=== PATIENT | male | born 1960 | race Hispanic/Latino ===

== ENCOUNTER → 2016-08-27 | Outpatient (CLI) | payer OTHER ==
[2016-08-27 10:14] LABS: BASOPHILS # (AUTO) 0.01 10*3/UL; BASOPHILS % (AUTO) 0.2 % (0-1); EOSINOPHILS # (AUTO) 0.05 10*3/UL; EOSINOPHILS % (AUTO) 0.9 % (0-8); HEMATOCRIT 40.6 % (42.0-52.0); HEMOGLOBIN 13.2 g/dL (14.0-18.0); LYMPHOCYTES # (AUTO) 1.35 10*3/uL; MEAN CORPUSCULAR HEMOGLOBIN 27.4 PG (27-31); MEAN CORPUSCULAR HGB CONC 32.5 g/dL (33-37); MEAN PLATELET VOLUME 8.8 FL (7.4-12.2); MONOCYTES # (AUTO) 0.49 10*3/UL (0.3-0.8); MONOCYTES % (AUTO) 8.5 % (5-15); NEUTROPHILS # (AUTO) 3.86 10*3/UL; NEUTROPHILS % (AUTO) 66.7 % (50-80); RED BLOOD COUNT 4.81 10^6/uL (4.70-6.10)
[2016-08-27 10:20] LABS: PLATELET MORPHOLOGY COMMENT NORMAL MORPHOLOGY (NORM); RBC MORPHOLOGY COMMENT NORMAL MORPHOLOGY (NORM); WBC MORPHOLOGY COMMENT NORMAL MORPHOLOGY (NORM)
[2016-08-27 10:30] LABS: BLOOD UREA NITROGEN 9 mg/dL (7-22); BUN/CREATININE RATIO 12.85 (6-20); CALCIUM 9.9 mg/dL (8.7-10.7); CHOL/HDL RATIO 3.44 RATIO (0-4.0); EST GLOMERULAR FILTRATION > 60 (>60 ml/min/1.73m(2)); HDL CHOLESTEROL 47 mg/dL (40-150); SERUM ALBUMIN 4.7 g/dL (3.5-4.8); SERUM CHOLESTEROL 162 mg/dL (120-200); URIC ACID 8.3 mg/dl (3.8-8.5)
--- NOTE | 2016-08-27 11:20 | EKG ---
[address] [address] Measurements Intervals [place] Rate: 135 P: OR: 0 QRS: 190 QRSD: 113 T: 37 QT: 276 QTc: 355 Interpretive Statements ATRIAL FIBRILLATION WITH RAPID VENTRICULAR RESPONSE MARKED RIGHT AXIS DEVIATION RIGHT BUNDLE BRANCH BLOCK ] POSSIBLE ANTERIOR MYOCARDIAL INFARCTION, OF INDETERMINATE AGE Compared to ECG 09/11/2013 14:18:15 Right-axis deviation now present Sinus rhythm no longer present Indeterminate axis no longer present Left posterior fascicular block no longer present Myocardial infarct finding still present Electronically Signed On 08-27-16 18:13:16 MDT by Cresencio Alonso [email or web address]
== END ==
LOC: EKG 09:34 → MOB RAD 09:34
PROVIDERS: ATTEND Family Medicine
DX: Z00.00 Encounter for general adult medical examination without abnormal findings (principal); E78.5 Hyperlipidemia, unspecified; M10.9 Gout, unspecified; E05.90 Thyrotoxicosis, unspecified without thyrotoxic crisis or storm; I48.91 Unspecified atrial fibrillation; I45.19 Other right bundle-branch block; F17.210 Nicotine dependence, cigarettes, uncomplicated; Z12.5 Encounter for screening for malignant neoplasm of prostate
CPT/HCPCS: 36415; 80053; 80061; 82306; 84439; 84443; 84550; 85025; 93005; 93010; G0103

== ENCOUNTER → 2016-11-28 | Outpatient (CLI) | payer OTHER ==
[2016-11-28 15:04] LABS: BASOPHILS # (AUTO) 0.05 10*3/UL; BASOPHILS % (AUTO) 0.5 % (0-1); EOSINOPHILS # (AUTO) 0.03 10*3/UL; EOSINOPHILS % (AUTO) 0.3 % (0-8); HEMATOCRIT 38.8 % (42.0-52.0); HEMOGLOBIN 12.9 g/dL (14.0-18.0); LYMPHOCYTES # (AUTO) 1.83 10*3/uL; MEAN CORPUSCULAR HEMOGLOBIN 25.4 PG (27-31); MEAN CORPUSCULAR HGB CONC 33.2 g/dL (33-37); MEAN CORPUSCULAR VOLUME 76.5 FL (80-90); MEAN PLATELET VOLUME 8.1 FL (7.4-12.2); MONOCYTES # (AUTO) 0.94 10*3/UL (0.3-0.8); MONOCYTES % (AUTO) 8.5 % (5-15); NEUTROPHILS # (AUTO) 8.16 10*3/UL; NEUTROPHILS % (AUTO) 73.9 % (50-80); RED BLOOD COUNT 5.07 10^6/uL (4.70-6.10)
[2016-11-28 15:09] LABS: PLATELET MORPHOLOGY COMMENT NORMAL MORPHOLOGY (NORM); RBC MORPHOLOGY COMMENT NORMAL MORPHOLOGY (NORM); WBC MORPHOLOGY COMMENT NORMAL MORPHOLOGY (NORM)
[2016-11-28 16:20] LABS: FREE T4 (FREE THYROXINE) 1.64 ng/dL (0.93-1.71)
== END ==
LOC: CT 14:08
PROVIDERS: ATTEND Family Medicine
DX: I48.91 Unspecified atrial fibrillation (principal); I10 Essential (primary) hypertension; E03.9 Hypothyroidism, unspecified; E55.9 Vitamin D deficiency, unspecified; R30.0 Dysuria; F17.200 Nicotine dependence, unspecified, uncomplicated
CPT/HCPCS: 36415; 82306; 84439; 84443; 85025

== ENCOUNTER → 2016-12-07 | Outpatient (CLI) | payer OTHER ==
[2016-12-07 09:40] LABS: BILIRUBIN,URINE NEGATIVE (NEG); CLARITY,URINE CLEAR (CLEAR); COLOR,URINE YELLOW; GLUCOSE, URINE (UA) NEGATIVE (NEG); NITRATE,URINE NEGATIVE (NEG); OCCULT BLOOD,URINE NEGATIVE (NEG); PROTEIN,URINE NEGATIVE (NEG); UROBILINOGEN,URINE 0.2 mg/dL (0.2)
[2016-12-07 09:46] LABS: SQUAMOUS EPITHELIAL CELL,UR RARE; URINE SAMPLE TYPE CLEAN CATCH URINE
== END ==
LOC: LAB 08:56
PROVIDERS: ATTEND Family Medicine
DX: R30.0 Dysuria (principal); I10 Essential (primary) hypertension; I48.91 Unspecified atrial fibrillation; F17.200 Nicotine dependence, unspecified, uncomplicated
CPT/HCPCS: 81001; 93306

== ENCOUNTER 2016-12-10 08:56 | Day surgery (SDC) | payer OTHER ==
[~2016-12-10 08:56] MED LIST: LIDOCAINE W/ SODIUM BICARB 0.5 ML SYR ONE; Lactated Ringers 1,000 ML PRIMARY IV ONE
[2016-12-10] MEDS ORDERED: IPRATROPIUM/ALBUTEROL SULFATE 3 ML NEB NEB ONE ×2 (10:19→10:22)
[2016-12-10] MEDS ORDERED: METOPROLOL TARTRATE 5 MG/5 ML VIAL IVP ONE (10:20)
[2016-12-10] MEDS ORDERED: METOPROLOL TARTRATE 5 MG/5 ML VIAL ONE (10:22)
[2016-12-10] MEDS ORDERED: Lactated Ringers 1,000 ML PRIMARY IV ONE (10:49)
[2016-12-10] MEDS ORDERED: MIDAZOLAM 5 MG/1 ML ONE (10:59)
[2016-12-10] MEDS ORDERED: fentaNYL Inj 100 MCG/2 ML VIAL ONE (10:59)
[2016-12-10] MEDS ORDERED: Lidocaine Inj 1% 20 ML ONE (11:00)
[2016-12-10] MEDS ORDERED: LIDOCAINE HCL/PF 2% (20 MG/ML) - 5 ML SYRINGE ONE (11:04)
[2016-12-10] MEDS ORDERED: ESMOLOL HCL 100 MG/10 ML VIAL ONE (11:14)
--- NOTE | 2016-12-10 11:37 | GEN.OPNOTE ---
EGD / Colonoscopy Report Surgery Date: 12/10/16 Preoperative Diagnosis: Black tarry stools. Pigmented skin lesion of the nose Postoperative Diagnosis: Duodenal ulcer. There is esophagus. Submucosal mass in the prepyloric area. Pigmented skin lesion Procedure: Colonoscopy. EGD with biopsies. Punch biopsy of the nose Surgeon: Edward Lombardo MD Anesthesia Provider: Jean Pierre Garcia CRNA Anesthesia Type: MAC Indications: Patient's been asked some black stools. He needs an EGD and colonoscopy see the source. He also has a pigmented skin lesion since he is off his anticoagulations for the procedure we'll do the biopsy EGD Findings: Esophagus: Scope was advanced into the posterior pharynx under direct visualization. His then advanced into the esophagus under visualization. 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 Biopsies were taken. This is a short segment may be only 5 mm in greatest length GE Junction : GE junction proximal be 41-42 cm Fundus : Go pressure Flexon itself revealing normal fundus Body : Patient has some chronic inflammatory changes the body of the stomach Prepyloric : Prepyloric area had a submucosal mass that was soft and freely mobile. Mucosal biopsies taken. A TANK CHARGER within the pylorus had what appeared to be acute inflammatory changes biopsies taken Small Intestine : First second portion of duodenum were within normal limits A lubricated flexible upper endoscope was inserted and passed through the esophagus and stomach into the duodenum. Colonoscopy Findings: Prep : Excellent Cecum : Scope was advanced over the cecum. Ileocecal valve identified is able to cannulate the terminal ileum. Terminal ileum appeared to be normal. Cecum was within normal limits Ascending : Ascending colon free from disease Transverse : Transverse colon free from disease Sigmoid : Descending and sigmoid colon had no active pathology Rectum : Internal hemorrhoids otherwise no active pathology Digital Rectal Exam : External hemorrhoidal skin tags A lubricated flexible colonoscope was inserted and passed to the blind end of the cecum. Additional Details: Before during the endoscopy procedure the patient's nose is prep with Hibiclens. Infiltrative 1% Xylocaine without epinephrine 1 mL was used. A 2 mm punch biopsy was done taken. Hemostasis obtained with pressure. Dermabond was placed for dressing
[2016-12-10 13:19] VITALS: RESP 14
[2016-12-10 13:21] VITALS: TEMP 97.4
== END 2016-12-10 12:25 | disposition home or self-care (01) ==
LOC: SDSC 08:56
PROVIDERS: ATTEND Surgery
DX: K92.1 Melena (principal); L81.8 Other specified disorders of pigmentation; J34.89 Other specified disorders of nose and nasal sinuses
CPT/HCPCS: 11100; 43239; 45378; 87339; 94640; J2704; J3010; J7620; J2001; J2250; J7120

== ENCOUNTER 2017-06-15 00:37 | Inpatient (IN) ==
[2017-06-15] MEDS ORDERED: NORMAL SALINE 10 ML SYRINGE FLUSH IVP PRN ×6 (01:12→13:21)
[2017-06-15] MEDS ORDERED: Lactated Ringers 1,000 ML PRIMARY IV ONE (01:18)
[2017-06-15] MEDS ORDERED: Pantoprazole Inj 40 MG in Normal Saline Flush 10 ML IVP ONE (01:19)
[2017-06-15] MEDS ORDERED: Sodium Chloride 0.9% 500 ML PRIMARY IV ONE ×6 (01:21→13:21)
[2017-06-15 01:38] LABS: SERUM ALBUMIN 4.4 g/dL (3.5-4.8)
[2017-06-15 01:39] LABS: BASOPHILS # (AUTO) 0.04 10*3/UL; BASOPHILS % (AUTO) 0.3 % (0-1); EOSINOPHILS # (AUTO) 0.06 10*3/UL; EOSINOPHILS % (AUTO) 0.5 % (0-8); Hematocrit [HCT] 25.1 % (42.0-52.0); Hemoglobin [HGB] 7.4 g/dL (14.0-18.0); LYMPHOCYTES # (AUTO) 2.94 10*3/uL; MEAN CORPUSCULAR HGB CONC 29.5 g/dL (33-37); MEAN CORPUSCULAR VOLUME 74.7 FL (80-90); MEAN PLATELET VOLUME 9.1 FL (7.4-12.2); MONOCYTES # (AUTO) 1.02 10*3/UL (0.3-0.8); MONOCYTES % (AUTO) 8.1 % (5-15); NEUTROPHILS # (AUTO) 8.44 10*3/UL; NEUTROPHILS % (AUTO) 67.2 % (50-80); RED BLOOD COUNT 3.36 10^6/uL (4.70-6.10)
[2017-06-15 02:25] LABS: PLATELET MORPHOLOGY COMMENT NORMAL MORPHOLOGY (NORM); RBC MORPHOLOGY COMMENT SEE COMMENTS (NORM); WBC MORPHOLOGY COMMENT NORMAL MORPHOLOGY (NORM)
--- NOTE | 2017-06-15 02:29 | PDOC ---
GI Bleed/Rectal Complaint HPI - General Chief Complaint: GI Bleed / Rectal Pain Stated Complaint: POSSIBLE GI BLEED Date Seen by Provider: 06/15/17 Time Seen by Provider: 00:45 Source: POSITIVE: Patient, Spouse, Old records Exam Limitations: POSITIVE: No limitations Nurse's Notes Reviewed & Considered: Yes EMS Report Reviewed & Considered: Verbal - History of Present Illness Initial Comments: The patient is a 57-year-old male who is brought to the emergency room by ambulance. Patient states that around 2199 he started to feel "sick". He states he was nauseated and had an emesis which she thinks had some blood in it. He also had a "black" bowel movement. He states he felt "dizzy ". No loss of consciousness. Patient was seen in the emergency room on May 31 after having had a syncopal episode. At that time he was noted to have a hemoglobin of 8.4 and a hematocrit of 26.9. Review of records shows that he had no nausea, vomiting, diarrhea or other GI symptoms at that time. Reportedly , at that time, had a syncopal episode while he was at a bar and apparently had been drinking alcohol. Patient states that 6-8 months ago he had some blood in his stool and had an endoscopy and he states that he was diagnosed "with an ulcer". Patient has a history of atrial fibrillation for which he takes [place]hl[place], 5 mg daily. He also takes 81 mg of aspirin daily. He states he occasionally takes indomethacin for gout, but states he's not had any indomethacin for 3-4 months. He denies any chest pain. No neurologic symptoms. Patient states that he drinks about 6 beers per day and occasionally some whiskey. He smokes. Body Location Affected: REPORTS: Abdomen (Gastrointestinal bleeding) Timing: REPORTS: Constant Duration: 1-3 hours (Onset around 2229) Severity: Moderate Quality: REPORTS: Other (No pain anywhere) Context: DENIES: None, Sitting, Standing, Activity, Emotional stress, Coughing, Recent Trauma, Recent Surgery, Sleep, Rest, Lifting, Turning, Bending, Fall, Near Fall, Other Associated Symptoms: REPORTS: Black Stools, Nausea, Vomiting, Coffee Grounds Last BM (Date): 06/14/17 Number of Episodes of Diarrhea (in past 24hrs): 1 Similar Symptoms Previously: Yes (syncopal episode with noted anemia 31 May as above) Recent Care Received: REPORTS: Recently Seen, Treated by MD (As above.) Any Prior Injuries Related to Current Complaint?: No - Patient Home Medications Home Medications: Home Medications Multivit-Min/FA/Lycopene/Lut [Centrum Silver Tablet] 1 ea PO DAILY tab Cholecalciferol (Vitamin D3) [Vitamin D3] 2,000 unit PO DAILY 08/27/16 Metoprolol Tartrate 1 tab PO BID #60 tab 08/27/16 Apixaban [Eliquis] 5 mg PO BID #60 tab 11/28/16 levothyroxine 25 mcg tablet 50 mcg PO DAILY #60 tab 03/18/17 Aspirin [Aspir 81] 81 mg PO DAILY 05/31/17 Irbesartan/Hydrochlorothiazide [AVALIDE] 2 tab PO DAILY tab 06/05/17 indomethacin 50 mg capsule 50 mg PO TID PRN cap 06/05/17 - Patient Allergies Allergies/Adverse Reactions: Allergies 3 Allergy/AdvReac Type Severity Reaction Status Date / Time No Known Allergies Allergy Verified 06/15/17 00:35 Past Medical History - heen HEENT History: Denies History Cardiovascular History: Hypertension, Arrhythmia Additional Cardiovasular History: PT STATES IN AND OUT OF A-FIB Respiratory History: Denies History, Snoring Gastrointestinal History: Other (please comment) Additional Gastrointestinal History: BLACK STOOLS Genitourinary History: Denies History Endocrine History: Hypothyroidism Musculoskeletal History: Gout Prosthesis or Implant: No Additional Musculoskeletal History: BURSITIS Neurological History: Denies History Blood Disorders: Denies History Psychiatric History: Denies History History of Sexually Transmitted Diseases: No Cancer History: Denies History In Past Year Been Physically Harmed or Verbally Threatened: No History of MDRO: No History of Other Communicable Diseases: No Tobacco Use: Current Every Day Smoker Alcohol Use: Heavy Type of alcohol normally used: Beer In the Past 12 Months, Have Used or Abuse Any Substance: None Previous Surgical History: Yes Type / Date of Surgery: RIGHT KNEE SCOPE/ FACE SX AFTER INJURY/UMBILICAL HERNIA/ COLONOSCOPY AND EGD Anesthesia Reactions: No Malignant Hyperthermia: No Significant Family History: Cancer, Diabetes Past Medical History Reviewed: Reviewed - No Changes ROS - Limitations ROS Limitations: No Limitations Constitution: REPORTS: Denies Symptoms Cardiovascular: REPORTS: Denies Cardiac Symptoms Respiratory: REPORTS: Denies Resp Symptoms Neurological: REPORTS: Denies Neuro Symptoms Gastrointestinal: REPORTS: Nausea, Vomitting, Black Stools, Other (Hematemesis) Endocrine: REPORTS: Denies Symptoms Musculoskeletal: REPORTS: Denies MS Symptoms Genitourinary: REPORTS: Denies Symptoms Eyes: REPORTS: Denies Symptoms ENT: REPORTS: Denies Symptoms Skin: REPORTS: Denies Skin Symptoms Lympathic: REPORTS: Denies Lympathic Symptoms Immunologic: POSITIVE: Denies Symptoms Psychiatric: POSITIVE: Denies Psych Symptoms GI Bleed / Rectal Complaint PE - General Appearance General Appearance: POSITIVE: Alert, Cooperative, No Acute Distress, No Evidence of Trauma - HEENT HEENT: POSITIVE: Head Inspection Nml, Eyes Inspection Nml, Ears Inspection Nml, Nose Inspection Nml, Oral/Dental Inspect. Nml, Pharynx Inspect. Nml, PERRL, EOMI - Neck Neck: POSITIVE: Normal Inspection, No Apparent Injury - Respiratory Respiratory: POSITIVE: No Respiratory Distress, Breath Sounds Normal, Chest Non- Tender - Cardiovascular Cardiovascular: POSITIVE: Heart Sounds Normal, Equal Pulses, Strong Pulses, Irregularly Irreg Rhythm, Tachycardia. NEGATIVE: Regular Rate and Rhythm ( Atrial fibrillation at around 100/m), Bradycardia, JVD Present, S3 Gallop, S4 Gallop, Murmur, Occasional Extrasystoles, Frequent Extrasystoles Peripheral Pulses: Radial (R): 2+, Radial (L): 2+ - Abdomen Abdomen: Soft: (All Quadrants), Normal Bowel Sounds: (All Quadrants), Denies Tenderness: (All Quadrants), No Splenomegaly: (All Quadrants), No Hepatomegaly: (All Quadrants), No Guarding: (All Quadrants), No Rebound: (All Quadrants), No Palpable Pulse: (All Quadrants), No Palpabale Mass: (All Quadrants), No Distention: (All Quadrants), No Rigidity: (All Quadrants) - Genital / Rectal Rectal: POSITIVE: Non-Tender, Black Stool, Heme Positive Stool. 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 NEGATIVE: Normal Sinus Rhythm, Normal Rate, Abnormal EKG - Patient's Progress Re-Examine Time:: 02:00 Re-Examine Comment: Protonix IV started; 2 units of packed red blood cells ordered. 2 units fresh frozen plasma ordered. Case discussed with Dr. Hernandez, hospitalist and Dr. Manzo, surgeon. Patient admitted for further evaluation and treatment. - Consult Consult (If Yes, Name of Consulting MD & Time Called): Yes (Dr. Hernandez, hospitalist, Dr. Manzo surgeon, 0210 AM) Consulting MD will see pt:: POSITIVE: [facility] [place] Admit Counseled: POSITIVE: Patient, Family, RE: Lab Results, RE: DX, RE: Need for F/U Patient Care Time - Estimated PCT Patient Care Time (In Minutes): 60 Vital Signs - Recent Vital Signs Vital Signs: Vital Signs (Last 8 hours) Temp Pulse Pulse Resp BP BP Pulse Ox 06/15/17 02:15 97 F 105 H 16 88/53 97 06/15/17 01:59 96.0 F L 115 H 20 100/55 98 06/15/17 00:37 95.4 F L 130 H 93 16 85/48 97 - VS Reviewed Vital Signs Reviewed: Yes Discharge Clinical Impression: Gastrointestinal hemorrhage Discharge Disposition: Admit to Inpatient Condition: Serious Follow Up With: EZRA LANIDS [Primary Care Provider] - Date Decision to Admit to Inpatient: 06/15/17 Time Decision to Admit to Inpatient: 02:00
[2017-06-15] MEDS ORDERED: PANTOPRAZOLE IV 40 MG VIAL ONE (02:42)
[2017-06-15] MEDS ORDERED: ACETAMINOPHEN 325 MG TABLET PO PRN ×2 (03:44→13:21)
[2017-06-15] MEDS ORDERED: DOCUSATE 100 MG CAPSULE PO PRN ×2 (03:44→13:21)
[2017-06-15] MEDS ORDERED: LIDOCAINE W/ SODIUM BICARB 0.5 ML SYR SUBD PRN ×2 (03:44→13:21)
[2017-06-15] MEDS ORDERED: Lactated Ringers 1,000 ML PRIMARY IV SCH ×2 (03:44→10:00)
[2017-06-15] MEDS ORDERED: ONDANSETRON 4 MG/2 ML VIAL IVP PRN ×2 (03:44→13:21)
[2017-06-15 07:35] LABS: BASOPHILS # (AUTO) 0.02 10*3/UL; BASOPHILS % (AUTO) 0.2 % (0-1); EOSINOPHILS # (AUTO) 0.02 10*3/UL; EOSINOPHILS % (AUTO) 0.2 % (0-8); Hematocrit [HCT] 25.8 % (42.0-52.0); Hemoglobin [HGB] 8.3 g/dL (14.0-18.0); LYMPHOCYTES # (AUTO) 2.23 10*3/uL; MEAN CORPUSCULAR HEMOGLOBIN 24.3 PG (27-31); MEAN CORPUSCULAR HGB CONC 32.2 g/dL (33-37); MEAN CORPUSCULAR VOLUME 75.7 FL (80-90); MEAN PLATELET VOLUME 8.6 FL (7.4-12.2); MONOCYTES # (AUTO) 1.15 10*3/UL (0.3-0.8); MONOCYTES % (AUTO) 11.5 % (5-15); NEUTROPHILS # (AUTO) 6.56 10*3/UL; NEUTROPHILS % (AUTO) 65.5 % (50-80); RED BLOOD COUNT 3.41 10^6/uL (4.70-6.10)
[2017-06-15 07:36] LABS: PLATELET MORPHOLOGY COMMENT NORMAL MORPHOLOGY (NORM); RBC MORPHOLOGY COMMENT NORMAL MORPHOLOGY (NORM); WBC MORPHOLOGY COMMENT NORMAL MORPHOLOGY (NORM)
[2017-06-15] MEDS ORDERED: CHOLECALCIFEROL 1000 IU TABLET PO SCH (09:00)
[2017-06-15] MEDS ORDERED: Pantoprazole Inj 40 MG in Normal Saline Flush 10 ML IVP SCH (09:00)
[2017-06-15] MEDS ORDERED: LEVOTHYROXINE 25 MCG TABLET PO SCH (09:00)
--- NOTE | 2017-06-15 09:20 | PDOC ---
HPI - History of Present Illness History of Present Illness: Is a very nice 57-year-old gentleman with past medical history significant for atrial fibrillation on Eliquis. Was seen in the ER sometime ago for syncope at that time he was drinking alcohol at the bar and was inebriated also the patient states that 6-8 months ago he had some blood in his stool or endoscopy was done and diagnosed with an ulcer last night he started having some nausea and vomiting with some black tarry stools and felt dizzy did not have any syncopal episode and now was seen in the emergency room where he was hypotensive with a low hemoglobin Patient was transfused 2 units of packed red blood cells he is now receiving FFP he is much better is hemodynamically stable pressure 120/80 he is on Protonix drip. Past Medical History Medical History: Atrial fibrillation, anticoagulation with Eliquis, history of peptic ulcer disease, hypothyroidism, hypertension Surgical History: EGD Tobacco Use: Current Every Day Smoker In the Past 12 Months, Have Used or Abuse Any of the Following Substance: None Medication / Allergies Home Medications: Home Medications Medication Instructions Recorded Confirmed Type Multivit-Min/FA/Lycopene/Lut 1 ea PO DAILY tab 07/31/13 06/15/17 History [Centrum Silver Tablet] Cholecalciferol (Vitamin D3) 2,000 unit PO DAILY 08/27/16 06/15/17 History [Vitamin D3] Metoprolol Tartrate 1 tab PO BID #60 tab 08/27/16 06/15/17 Rx Apixaban [Eliquis] 5 mg PO BID #60 tab 11/28/16 06/15/17 Rx levothyroxine 25 mcg tablet 50 mcg PO DAILY #60 tab 03/18/17 06/15/17 Rx Aspirin [Aspir 81] 81 mg PO DAILY 05/31/17 06/15/17 History Irbesartan/Hydrochlorothiazide 2 tab PO DAILY tab 06/05/17 06/15/17 History [AVALIDE] indomethacin 50 mg capsule 50 mg PO TID PRN cap 06/05/17 06/15/17 History Allergies/Adverse Reactions: Allergies 3 Allergy/AdvReac Type Severity Reaction Status Date / Time No Known Allergies Allergy Verified 06/15/17 00:35 Review of Systems - Review of Systems All Systems: Reviewed & No Additional Complaints Except as Stated - Respiratory Respiratory: DENIES: Negative System Review, Cough, Sputum, Dyspnea At Rest, Dyspnea with Exertion, Pleuritic Pain, Hemoptysis, Wheezing, Other, See HPI - Cardiovascular Cardiovascular: DENIES: Negative System Review, Chest Pain, Edema, Syncope, Palpitations, Orthopnea, Paroxysmal Nocturnal Dyspnea, Other, See HPI - Gastrointestinal Gastrointestinal / Abdominal: REPORTS: Nausea, Vomiting, Bloody Stool - Neurological Neurologic: DENIES: Negative System Review, Headache, Numbness/Paresthesia, Tremors, Weakness, Seizures, Head Trauma, LOC, Dizziness, Confusion, Memory Loss , Difficulty Walking, Incoordination, Other, See HPI Exam - Vitals Vital Signs: Vital Signs Temperature 98.0 F Temperature Source Oral Pulse Rate [Apical] 96 Pulse Rate [Pulse Oximeter] 96 Pulse Rate 93 Respiratory Rate 14 Blood Pressure [Right Arm] 94/52 Blood Pressure 120/70 Pulse Ox 92 Oxygen Flow Rate 1 Oxygen Delivery Method Room Air Height 5 ft 9 in Weight 213 lb - General General Appearance: No Acute Distress, Cooperative - Respiratory Respiratory Exam: POSITIVE: Clear to Auscultation - Bilaterally, Breathing Non Labored, Normal To Percussion, Normal to Percussion and Palpation - Cardiovascular Cardiovascular Exam: POSITIVE: RRR, No Murmur, No Clicks, No Gallops, No Rubs, PMI Non-Displaced - GI/Abdominal GI/Abdominal Exam: POSITIVE: Normal Bowel Sounds, Non Tender, Non Distended, Soft, No Masses, No Hepatomegaly, No Splenomegaly, No Organomegaly - Extremities Extremities Exam: POSITIVE: Normal Inspection, Full ROM, Normal Capillary Refill , No Clubbing Present, No Edema Present, No Cyanosis Present, Negative Lon's sign, Dosalis Pedis Pulses - Stong & Regular Results - Labs CBC and BMP: 06/15/17 07:30 06/15/17 00:06 Assessment and Plan - Patient Problems (1) Gastrointestinal hemorrhage Current Visit: Yes Status: Acute Code(s): K92.2 - Gastrointestinal hemorrhage, unspecified (2) Atrial fibrillation Current Visit: No Status: Acute Onset Date: 08/25/13 Code(s): I48.91 - Unspecified atrial fibrillation Qualifiers: (3) Hypothyroidism (acquired) Current Visit: No Status: Acute Onset Date: 11/28/16 Code(s): E03.9 - Hypothyroidism, unspecified - Assessment / Plan Additional Assessment/Plan Details: #1 most likely upper GI bleed patient received 2 units of packed red blood cells hemodynamically stable Dr. Manzo on consult most likely will have an EGD he was contacted last night by Dr. Solorio continue Protonix drip. #2 hypertension we will hold his beta sandra and the carb since he was hypotensive last night better at this point #3 anticoagulation with Eliquis this takes about 24 hours to clear her system hold aspirin #4 hypothyroidism continue replacement
--- NOTE | 2017-06-15 10:08 | CONSULT ---
Consult Note - Consult Consult Date: 06/15/17 Reason for Consult: PreOp Consulation : General Surgery Requesting Physician: Dr. Lenny Mane'anam Primary Care Provider: Durga Alva MD - History of Present Illness History of Present Illness: The patient is a 57-year-old male I'm asked to see for a GI bleed. In November 2016 patient was having black tarry stools. He underwent upper and lower endoscopy per Dr. Lombardo. The note is very confusing but it sounds as though he had a duodenal ulcer. He had some acute inflammatory changes in the pyloric area as well. Biopsies showed reactive gastropathy and chronic inactive inflammation. He apparently had a submucosal mass as well. He was started on a proton pump inhibitor but stopped it after awhile because it bothers his stomach.His colonoscopy was unremarkable. 2 weeks ago the patient was seen in the emergency room for a syncopal episode. He had an MRI of his head. He is scheduled to see the neurologist, for something seen on the MRI, as well as a lubricating specialist regarding his atrial fibrillation. He had an appointment scheduled to see the box packer- oncologist because of his anemia. I believe his anemia is secondary to GI tract blood loss. He had a hemoglobin of 8.4 and hematocrit of 26.9. He apparently was started on some iron. His anemia was not further addressed. Last night the patient had some abdominal pain. He threw up approximately 3 times. He reported it was black. He also had 3 black bowel movements. He presented to the emergency room and was found to have a hemoglobin of 7.2 and a hematocrit of 25.1. His digital rectal exam was Hemoccult positive. 2 units of packed red blood cells were ordered as well as 2 units of fresh frozen plasma. He was started on a Protonix drip. The second unit of fresh frozen plasma is just being started. He has had the blood. He had another bowel movement today but flushed it before the nursing staff could see it. He has not thrown up again. I am here to evaluate him. We will take him to the endoscopy suite for upper endoscopy to make sure that his bleeding has resolved. Post transfusion today his hemoglobin has increased slightly 8.3 and his hematocrit is 25.8. He will need 2 more units of blood but will recommend that be done post endoscopy. His blood pressure and heart rate are much improved. The patient is on Eliquis 5 mg twice a day. He also takes a baby aspirin. He uses indomethacin as needed for gout. He is not on a proton pump inhibitor. He needs to be on a proton pump inhibitor. The patient drinks approximately 6 beers a day. He drinks [place] when he has it. He smokes between 1/2-1 pack of cigarettes a day. Review of Systems - Gastrointestinal Gastrointestinal / Abdominal: REPORTS: Nausea, Vomiting, Diarrhea, Abdominal Pain, Melena, See HPI Past Medical History Medical History: Atrial fibrillation, anticoagulation with Eliquis, history of peptic ulcer disease, hypothyroidism, hypertension, gout. Surgical History: Right knee arthroscopy, facial surgery for fractures, umbilical herniorrhaphy, EGD in November 2016, colonoscopy in November 2016. Tobacco Use: Current Every Day Smoker (1/2-1 pack a day. Used to smoke 2 packs a day.) In the Past 12 Months, Have Used or Abuse Any of the Following Substance: None Alcohol Use: Heavy (Sixpack of beer a day plus [place] when he has it.) Medication / Allergies Home Medications: Home Medications Medication Instructions Recorded Confirmed Type Multivit-Min/FA/Lycopene/Lut 1 ea PO DAILY tab 07/31/13 06/15/17 History [Centrum Silver Tablet] Cholecalciferol (Vitamin D3) 2,000 unit PO DAILY 08/27/16 06/15/17 History [Vitamin D3] Metoprolol Tartrate 1 tab PO BID #60 tab 08/27/16 06/15/17 Rx Apixaban [Eliquis] 5 mg PO BID #60 tab 11/28/16 06/15/17 Rx levothyroxine 25 mcg tablet 50 mcg PO DAILY #60 tab 03/18/17 06/15/17 Rx Aspirin [Aspir 81] 81 mg PO DAILY 05/31/17 06/15/17 History Irbesartan/Hydrochlorothiazide 2 tab PO DAILY tab 06/05/17 06/15/17 History [AVALIDE] indomethacin 50 mg capsule 50 mg PO TID PRN cap 06/05/17 06/15/17 History Allergies/Adverse Reactions: Allergies 3 Allergy/AdvReac Type Severity Reaction Status Date / Time No Known Allergies Allergy Verified 06/15/17 00:35 Results - Labs CBC and BMP: 06/15/17 07:30 06/15/17 00:06 Exam - Vitals Vital Signs: Vital Signs Temperature 98.0 F Temperature Source Oral Pulse Rate [Apical] 96 Pulse Rate [Pulse Oximeter] 93 Pulse Rate 86 Respiratory Rate 16 Blood Pressure [Right Arm] 94/52 Blood Pressure 108/67 Pulse Ox 96 Oxygen Flow Rate 1 Oxygen Delivery Method Room Air Height 5 ft 9 in Weight 213 lb - General General Appearance: No Acute Distress, Cooperative - Respiratory Respiratory Exam: POSITIVE: Clear to Auscultation - Bilaterally, Breathing Non Labored - Cardiovascular Cardiovascular Exam: POSITIVE: No Murmur, Irregular Rhythm, Tachycardia (Mild tachycardia) - GI/Abdominal GI/Abdominal Exam: POSITIVE: Normal Bowel Sounds, Non Tender, Non Distended, Soft - Rectal Rectal Exam: POSITIVE: Heme (+) Stool (Per the emergency room physician.) - Neurological Neurological Exam: POSITIVE: Alert, Oriented x 3 - Psychiatric Psychiatric Exam: POSITIVE: Normal Affect, Normal Mood Assessment and Plan - Patient Problems (1) Anemia Current Visit: Yes Status: Acute Priority: High Comment: Patient was anemic when seen on May 31. With his GI bleed he is more anemic and symptomatic. He is still anemic post 2 units of packed red blood cells. We will recommend 2 more units following endoscopy. Code(s): D64.9 - Anemia, unspecified Qualifiers: Anemia type: iron deficiency Iron deficiency anemia type: chronic blood loss Qualified Code(s): D50.0 - Iron deficiency anemia secondary to blood loss (chronic) (2) Gastrointestinal hemorrhage Current Visit: Yes Status: Acute Priority: High Onset Date: ~06/14/17 Comment: History of duodenal ulcer. Patient is chronically anticoagulated. We will proceed with upper endoscopy to make sure the bleeding has resolved. No need for colonoscopy as he had one 6 months ago. Patient agrees to proceed with upper endoscopy.The procedure has been discussed with the patient in complete yet simple terms including benefits, risks, and alternatives. All questions have been answered. Informed consent has been obtained. Code(s): K92.2 - Gastrointestinal hemorrhage, unspecified Qualifiers: GI bleed type/associated pathology: duodenal ulcer Qualified Code(s): K26.4 - Chronic or unspecified duodenal ulcer with hemorrhage (3) Chronic anticoagulation Current Visit: Yes Status: Chronic Priority: Medium Comment: Hold anticoagulation at this time. Code(s): Z79.01 - half-way (current) use of anticoagulants
[2017-06-15] MEDS ORDERED: LIDOCAINE 2% VISCOUS(20 MG/1 ML) - 15 ML UD CUP PO ONE (10:33)
[2017-06-15] MEDS ORDERED: LIDOCAINE HCL/PF 2% (20 MG/ML) - 5 ML SYRINGE ONE (10:33)
[2017-06-15] MEDS ORDERED: PROPOFOL 10 MG/1 ML (200 MG/20 ML) VIAL IV ONE ×2 (10:34→10:58)
[2017-06-15] MEDS ORDERED: MIDAZOLAM 5 MG/1 ML ONE (10:34)
[2017-06-15] MEDS ORDERED: fentaNYL Inj 100 MCG/2 ML VIAL ONE (10:34)
--- NOTE | 2017-06-15 11:09 | CRNA.PROGR ---
Post Anesthesia Phase II - Post Anesthesia Phase II Patient Stable and Discharged To: Med/Surg Care Assumed By Surgeon: Javi Manzo MD Temperature: 98.1 F Pulse Rate: 101 Respiratory Rate: 18 Blood Pressure: 116/68 Pulse Ox: 94 Total Marc Score at Discharge: 9 Post Anesthesia Discharge Criteria Met: Yes
--- NOTE | 2017-06-15 11:10 | CRNA.PROGR ---
Anesthesia Time - - Start date: 06/15/17 End date: 06/15/17 - Procedure/Recovery Time Anesthesia : Time In: 10:42 Anesthesia : Time Out: 11:04 Anesthesia : Total Time: 22 - Total Anesthesia Time Total Anesthesia Time (minutes): 22 - Other Weight: 96.615 kg Height: 5 ft 9 in Body Mass Index (BMI): 31.4 Anesthesia Type: MAC (with sedation)
--- NOTE | 2017-06-15 11:14 | GEN.OPNOTE ---
EGD Operative Note Surgery Date: 06/15/17 Preoperative Diagnosis: GI bleed. History of peptic ulcer disease. Postoperative Diagnosis: GI bleed. No active bleeding. Antral ulcer. Gastritis. Irregular GE junction. Procedure: Esophagogastroduodenoscopy. Surgeon: Javi Manzo MD Anesthesia Provider: Jean Pierre Garcia CRNA Anesthesia Type: MAC Indications: Patient is on chronic anticoagulation. He presented to the emergency room after hematemesis and melanotic stools. He had a low hemoglobin and hematocrit. He got 2 units of blood and fresh frozen plasma. He is taken for endoscopy to rule out active bleeding. Findings: Esophagus: [Normal.] GE Junction : [Irregular. No inflammation.] Fundus : [Normal.] Body : [Normal.] Prepyloric : [Antral gastritis. Submucosal lipoma. Antral ulcer-no active bleeding. Inflammatory changes at the pylorus.] Small Intestine : [Duodenum and duodenal bulb were unremarkable.] A lubricated flexible upper endoscope was inserted passed through the esophagus and stomach into the duodenum. The duodenum and duodenal bulb were unremarkable. There was mounding of the antral mucosa as well as an ulcer. No active bleeding. Obvious antral gastritis. There is also a submucosal lipoma. Again there was no blood or active bleeding in the duodenum, duodenal bulb, or entire stomach. The scope was slowly withdrawn and brought through the hypopharynx under suction completing the procedure. I did not do any further biopsies. The patient had an upper endoscopy with biopsies in November. With his recent bleeding and anticoagulation I felt it would be unwise to do biopsies at this time. The findings were discussed with the patient's and will be discussed with the hospitalist in the near future. Estimated Blood Loss (mL): 0 Fluids: 600 mL of crystalloid. Pathology: No specimens. Complications: No complications.
[2017-06-15] MEDS ORDERED: ACETAMINOPHEN 325 MG TABLET PO ONE (12:37)
--- NOTE | 2017-06-15 13:20 | PDOC(PROG) ---
Date and Time of Service: 06/15/2017, 1315 Interval History: No chest pain. No shortness breath. Postoperative EGD, reveals antral ulcer. Gastritis. Patient does not complain of any issues now, and he would like to eat. Objective : Data - Labs CBC and BMP: 06/15/17 07:30 06/15/17 00:06 Objective : Exam - General General Appearance: No Acute Distress, Cooperative Additional General Exam Details: Vital Signs - Last Taken Temperature 98.1 F 06/15/17 12:00 Pulse Rate 90 06/15/17 13:00 Respiratory Rate 14 06/15/17 13:00 Blood Pressure 120/61 06/15/17 13:00 Pulse Ox 94 06/15/17 13:00 - Eye Eye Exam: No Scleral Icterus - Respiratory Respiratory Exam: Clear to Auscultation - Bilaterally, Breathing Non Labored - Cardiovascular Cardiovascular Exam: RRR, No Murmur, No Clicks, No Gallops, No Rubs, No JVD - GI/Abdominal GI/Abdominal Exam: Normal Bowel Sounds, Non Tender, Non Distended, Soft - Extremities Extremities Exam: No Clubbing Present, No Edema Present, No Cyanosis Present - Neurological Neurological Exam: Alert, Oriented x 3, No Facial Droop, Speech Intact / Clear, Moves All Extremities Equally Assessment and Plan - Patient Problems (1) Antral ulcer Current Visit: Yes Status: Acute Code(s): K25.9 - Gastric ulcer, unspecified as acute or chronic, without hemorrhage or perforation Qualifiers: Gastric ulcer chronicity: acute Qualified Code(s): K25.3 - Acute gastric ulcer without hemorrhage or perforation (2) Atrial fibrillation Current Visit: Yes Status: Acute Onset Date: 08/25/13 Code(s): I48.91 - Unspecified atrial fibrillation Qualifiers: (3) Hypothyroidism (acquired) Current Visit: Yes Status: Acute Onset Date: 11/28/16 Code(s): E03.9 - Hypothyroidism, unspecified (4) Anemia due to blood loss Current Visit: Yes Status: Acute Code(s): D50.0 - Iron deficiency anemia secondary to blood loss (chronic) (5) Hypertension Current Visit: Yes Status: Acute Code(s): I10 - Essential (primary) hypertension Qualifiers: Hypertension type: essential hypertension Qualified Code(s): I10 - Essential (primary) hypertension (6) Gouty arthropathy Current Visit: Yes Status: Acute Code(s): M10.9 - Gout, unspecified - Assessment / Plan Additional Assessment/Plan Details: Post-EGD, we will go ahead and transfuse patient another 2 units packed blood cells. Check CBC tomorrow. Transfer out of ICU and resume oral Protonix. Stop IV Protonix. I told the patient that he needs to quit drinking alcohol entirely and quit smoking. All of his medical issues are directly related back to his lifestyle choices. He will likely have a stroke and being institutionalized for the rest of his life if he continues to drink alcohol. His echocardiogram shows a structurally normal heart, which makes the most likely cause of his atrial fibrillation something along the lines of his alcohol, possibly weight. I discussed this in detail with both the patient and his . I also do note that the patient's chads 2 score is 1. This is based on hypertension. He could consider an aspirin for monotherapy for stroke prevention. He has a follow-up with cardiology this Saturday and to discuss the matter further as well. Do not think he needs both antiplatelet therapy and anticoagulant therapy. Has been taking aspirin in addition to eliquis. Discussed in detail with patient and his .
[2017-06-15] MEDS ORDERED: PANTOPRAZOLE 40 MG TABLET PO ONE (13:21)
[2017-06-15] MEDS: PANTOPRAZOLE 40 MG TABLET PO SCH (20:17)
[2017-06-15] MEDS: Metoprolol TARTRATE Tab 25 MG TAB PO SCH (20:17)
[2017-06-16 05:09] LABS: Hematocrit [HCT] 29.2 % (42.0-52.0); Hemoglobin [HGB] 9.4 g/dL (14.0-18.0); MEAN CORPUSCULAR HEMOGLOBIN 24.8 PG (27-31); MEAN CORPUSCULAR HGB CONC 32.2 g/dL (33-37); RED BLOOD COUNT 3.79 10^6/uL (4.70-6.10)
[2017-06-16] MEDS ORDERED: LEVOTHYROXINE 25 MCG TABLET PO SCH (05:30)
[2017-06-16] MEDS: PANTOPRAZOLE 40 MG TABLET PO SCH (07:11)
[2017-06-16] MEDS ORDERED: CHOLECALCIFEROL 1000 IU TABLET PO SCH (09:00)
[2017-06-16] MEDS: Metoprolol TARTRATE Tab 25 MG TAB PO SCH (09:11)
--- NOTE | 2017-06-16 11:36 | EKG ---
[address] [place] [id number] Measurements Intervals [place] Rate: 130 P: NM: 0 QRS: 117 QRSD: 106 T: 42 QT: 299 QTc: 376 Interpretive Statements ATRIAL FIBRILLATION WITH RAPID VENTRICULAR RESPONSE INCOMPLETE RIGHT BUNDLE BRANCH POSSIBLE ANTERIOR MYOCARDIAL INFARCTION,OLD Compared to ECG 05/31/2017 09:58:33 Incomplete right bundle-branch block now preseent Right bundle-branch block no longer present Right-axis deviation no longer present Myocardial infarct finding still present Electronically Signed On 06-16-17 17:02:29 [facility] by Cresencio Alonso [email or web address]
[2017-06-16 11:43] VITALS: BP 128/82; RESP 18; TEMP 97.4; O2SAT 92
--- NOTE | 2017-06-16 13:04 | PDOC(PROG) ---
Date and Time of Service: 06/16/2017 12:15 PM Interval History: No complaints. Wants to go home. No more hematemesis. Had several small dark stools but they are getting inside sales executive in color. Denies abdominal pain. Denies heartburn. Eating well. H&H 9.4 and 29.2. Objective : Data - Labs CBC and BMP: 06/16/17 04:48 06/15/17 00:06 - Vital Signs Vital Signs and I&O: Vital Signs - Last Taken Temperature 97.4 F 06/16/17 11:42 Pulse Rate 82 06/16/17 11:42 Respiratory Rate 18 06/16/17 11:42 Blood Pressure 128/82 06/16/17 11:42 Pulse Ox 92 06/16/17 11:42 Intake and Output (24hr x 4 totals) 06/14/17 06/15/17 06/16/17 06/17/17 05:59 05:59 05:59 05:59 Intake Total 900 / 900 5606 / 5606 720 / 720 Output Total 1000 / 1000 Balance 900 / 900 4606 / 4606 720 / 720 Objective : Exam - General General Appearance: No Acute Distress, Cooperative - Respiratory Respiratory Exam: Breathing Non Labored Assessment and Plan - Patient Problems (1) Anemia Current Visit: Yes Status: Acute Priority: High Comment: Has been transfused 4 units of packed red blood cells and 2 units of FFP. Code(s): D64.9 - Anemia, unspecified Qualifiers: Anemia type: iron deficiency Iron deficiency anemia type: chronic blood loss Qualified Code(s): D50.0 - Iron deficiency anemia secondary to blood loss (chronic) (2) Gastrointestinal hemorrhage Current Visit: Yes Status: Acute Priority: High Onset Date: ~06/14/17 Comment: No evidence of ongoing bleeding. We will sign off at this time. Please call for any problems. The patient needs to be on long-term proton pump inhibitor. Anticoagulation per medical service. 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
[2017-06-16] MEDS ORDERED: PANTOPRAZOLE 40 MG TABLET PO ONE (13:46)
--- NOTE | 2017-06-16 13:56 | DCSUMMARY ---
Hospitalization Summary Admit Date: 06/15/2017 Discharge Date: 06/16/17 Primary Diagnosis:: GI bleed, antral ulcer Hospital Course: Physical very pleasant 57-year-old male who is admitted with what appeared to be upper gastrointestinal bleeding. He had anemia due to acute blood loss, and he was transfused a total of 4 units from the hospital stay. His discharge hemoglobin is around 8.3. He states to me that he drinks alcohol and smokes. He is also on indomethacin for gouty arthropathy attacks, he is also on a liquid for stroke prevention. He also takes an aspirin daily. His bleeding risk is quite high. In terms of the upper gastrointestinal bleeding, Dr. Manzo was consulted and he did an EGD, and an antral ulcer, that looked healing, was noted. It was not actively bleeding. He was treated with Protonix for that and tolerated the therapy well. In terms of the bleeding, he was transfused 4 units, and he can have another blood count tomorrow and hopefully we can get him to see Dr. Alva to review that. I did given the option to watch this 1 more day but he prefers to go home. In terms of his gout, this should get better if he quits alcohol, I've also stop hydrochlorothiazide as I can induce gouty arthropathy. He is no longer a candidate for nonsteroidal anti-inflammatory drugs for his gouty arthropathies and attacks due to his ulcers. In terms of his drinking and smoking, I counseled him to quit both. In terms of his hypertension, as blood pressures were well controlled on metoprolol alone so we will continue with that and as mentioned I will stop the irbesartan/HCTZ. He could opt for captopril which has been shown to actually help reduce uric acid. That's if his blood pressures are elevated on follow-up visits. In terms of his atrial fibrillation, his echocardiogram shows a structurally normal heart. This is probably the result of alcohol use and abuse. He needs to stop alcohol entirely. I recommended he stop eliquis given his chads 2 score is 1, based on hypertension, and so his risk is 2.8% in a given year of stroke. I think it is reasonable to provide stroke prevention at this time with aspirin alone. He has no indication for both. No completes of chest pain, shortness breath, nausea or vomiting or abdominal pain today. He is having some dark stools, but also notably has been on iron therapy outside the hospital. Assessment and Plan: 1. As per discharge assessments noted 2. Disposition: Patient is discharged home. 3. Condition on discharge, stable and improved. 4. Diet: regular diet 5. Activities: resume normal activities, but no drinking and no smoking 6. Follow-Up: 1. See Dr. Alva on Saturday. 2. 7. Medications at the Time of Discharge: Home Medications Medication Instructions Recorded Confirmed Type Multivit-Min/FA/Lycopene/Lut 1 ea PO DAILY tab 07/31/13 06/15/17 History [Centrum Silver Tablet] Cholecalciferol (Vitamin D3) 2,000 unit PO DAILY 08/27/16 06/15/17 History [Vitamin D3] Metoprolol Tartrate 1 tab PO BID #60 tab 08/27/16 06/15/17 Rx levothyroxine 25 mcg tablet 50 mcg PO DAILY #60 tab 03/18/17 06/15/17 Rx Aspirin [Aspir 81] 81 mg PO DAILY 05/31/17 06/15/17 History Pantoprazole Sodium [Protonix] 40 mg PO BID AC #60 tab 06/16/17 Rx 8. Time, care, counseling and coordination of care for this discharge is greater than 30 minutes. Exam - Vitals Vital Signs: Vital Signs Temperature 97.4 F Temperature Source Temporal Artery Scan Pulse Rate [Apical] 88 Pulse Rate [Pulse Oximeter] 82 Pulse Rate 97 Respiratory Rate 18 Blood Pressure [Right Arm] 128/82 Blood Pressure 132/67 Pulse Ox 92 Oxygen Flow Rate 1 Oxygen Delivery Method Room Air Height 5 ft 9 in Weight 218 lb 2 oz - General General Appearance: No Acute Distress, Cooperative - Eye Eye Exam: POSITIVE: No Scleral Icterus - ENT ENT Exam: POSITIVE: Mucous Membranes Moist - Respiratory Respiratory Exam: POSITIVE: Clear to Auscultation - Bilaterally, Breathing Non Labored - Cardiovascular Cardiovascular Exam: POSITIVE: RRR, No Murmur, No Clicks, No Gallops, No Rubs, No JVD - GI/Abdominal GI/Abdominal Exam: POSITIVE: Normal Bowel Sounds, Non Tender, Non Distended, Soft - Extremities Extremities Exam: POSITIVE: No Clubbing Present, No Edema Present, No Cyanosis Present - Neurological Neurological Exam: POSITIVE: Alert, Oriented x 3, No Facial Droop, Speech Intact / Clear, Moves All Extremities Equally Data Peritnent Studies: Laboratory Results 06/15/17 06/16/17 Range/Units 00:40 04:48 WBC 7.55 (4.8-10.8) 10^3/uL RBC 3.79 L (4.70-6.10) 10^6/uL Hgb 9.4 L (14.0-18.0) g/dL Hct 29.2 L (42.0-52.0) % MCV 77.0 L (80-90) FL MCH 24.8 L (27-31) PG MCHC 32.2 L (33-37) g/dL RDW Std Deviation 52.4 H (39-50) fL RDW Coeff of Pravin 19.5 H (11.5-14.5) % Plt Count 210 (140-350) 10*3/uL MPV 9.0 (7.4-12.2) FL Blood Type B POSITIVE Antibody Screen Negative Crossmatch See Detail Patient Problems - Patient Problem List (1) Antral ulcer Current Visit: Yes Status: Acute Code(s): K25.9 - Gastric ulcer, unspecified as acute or chronic, without hemorrhage or perforation Qualifiers: Gastric ulcer chronicity: acute Qualified Code(s): K25.3 - Acute gastric ulcer without hemorrhage or perforation Category: Medical (2) Atrial fibrillation Current Visit: Yes Status: Acute Onset Date: 08/25/13 Code(s): I48.91 - Unspecified atrial fibrillation Qualifiers: Atrial fibrillation type: chronic Category: Medical (3) Hypothyroidism (acquired) Current Visit: Yes Status: Acute Onset Date: 11/28/16 Code(s): E03.9 - Hypothyroidism, unspecified Category: Medical (4) Anemia due to blood loss Current Visit: Yes Status: Acute Code(s): D50.0 - Iron deficiency anemia secondary to blood loss (chronic) Category: Medical (5) Hypertension Current Visit: Yes Status: Acute Code(s): I10 - Essential (primary) hypertension Qualifiers: Hypertension type: essential hypertension Qualified Code(s): I10 - Essential (primary) hypertension Category: Medical (6) Gouty arthropathy Current Visit: Yes Status: Acute Code(s): M10.9 - Gout, unspecified Category: Medical
== END 2017-06-16 14:13 | disposition home or self-care (01) | DRG 378 ==
LOC: ER 00:37 → MED/SURG 02:22 → ICU 09:21 → MED/SURG 13:11
PROVIDERS: ADMIT Internal Medicine; ATTEND Family Medicine